=== PATIENT | female | born 1985 ===

== ENCOUNTER 2024-07-21 14:06 | Emergency (ER) | payer SELFPAY ==
--- NOTE | ~2024-07-21 | XR_ITS ---
EXAMINATION: XR CHEST CLINICAL INFORMATION: cough COMPARISON: None available. TECHNIQUE: Frontal view of the chest was obtained. FINDINGS: Prominence of the interstitial markings. Indistinct margins in the perihilar regions. No pleural effusion or pneumothorax. Heart silhouette size is normal. Multilevel thoracic spondylosis. Patient's large body habitus.. XR/XR chest 1V IMPRESSION: Mild interstitial edema in the correct clinical settings. Superimposed acute inflammatory versus infectious process cannot be excluded. Electronically signed by: Miko Johnson MD 07/21/2024 03:05 PM [facility]
[2024-07-21 14:14] VITALS: BP 160/80; PULSE 85; O2SAT 94
[2024-07-21 14:33] VITALS: PULSE 90; RESP 18; TEMP 36.6; O2SAT 96; BMI 53.2
--- NOTE | 2024-07-21 14:36 | ED.NAVMDI ---
HPI - Nausea/Vomiting/Diarrhea General Chief complaint: Nausea/Vomiting/Diarrhea Stated complaint: RECENT PNEUMONIA D/C FROM [place] TODAY PER EMS Related Data Allergies Allergy/AdvReac Type Severity Reaction Status Date / Time No Known Allergies Allergy Verified 07/21/24 14:36 [facility] Social History Social History Advance Directives: No Advance Directives Information Provided: No Do you have a plan to hurt others: No Plan Physical Exam Vital Signs: Vital Signs: Last Vital Signs Temp 98 F 07/21/24 14:33 Pulse 90 07/21/24 14:33 Resp 18 07/21/24 14:33 Pulse Ox 96 07/21/24 14:33 O2 Del Method Room Air 07/21/24 14:33 BMI result Body Mass Index 53.2 Course Course Course Narrative: This is a rapid medical exam performed by Meme Sosa PA-C. The patient is a 39-year-old female with a history of morbid obesity who presents with nausea vomiting diarrhea x4 days. Patient self reports that she was just admitted at [facility] for pneumonia and her other GI symptoms she was just released this morning, she states she is not feeling well, though her symptoms have persisted. On exam her lungs are clear to auscultation. She is noted to be markedly hypertensive, she does not take medication for blood pressure. In addition to screening labs viral panel and chest x-ray, I am adding a troponin and EKG. She is stable and can return to the waiting room pending her full medical assessment. Discharge Plan Discharge Clinical Impression: Nausea & vomiting Patient Disposition: Left W/O Completing Treatment Discharge Date/Time: 07/21/24 16:23
--- NOTE | 2024-07-21 15:10 | MHC.EDTECH ---
called patient twice no repond
== END 2024-07-21 16:23 | disposition left against medical advice (07) ==
PROVIDERS: Emergency Provider Emergency Medicine Emergency Medical Services
DX: R11.2 Nausea with vomiting, unspecified (principal); R19.7 Diarrhea, unspecified
CPT/HCPCS: 71045; 99281; 99283

== ENCOUNTER → 2024-07-21 14:36 | Outpatient (BNV) | payer SELFPAY | PROVIDERS: Visit Provider Radiology Diagnostic Radiology | DX: R05.9 Cough, unspecified (principal) | CPT/HCPCS: 71045 ==